=== PATIENT | female | born 1950 | race Caucasian/White ===

== ENCOUNTER 2023-08-19 12:32 | Outpatient (CLI) | payer OTHER | END 2023-08-19 12:44 | disposition home or self-care (01) | LOC: RAD 12:32 | PROVIDERS: ATTEND Physical Medicine & Rehabilitation | DX: M76.62 Achilles tendinitis, left leg (principal); M17.11 Unilateral primary osteoarthritis, right knee; M17.12 Unilateral primary osteoarthritis, left knee ==